=== PATIENT | female | born 1975 | race Caucasian/White ===

== ENCOUNTER 2018-03-14 11:08 | Outpatient (CLI) | payer OTHER, MEDICAID ==
[~2018-03-14] VITALS: Ht 124.5 cm; Wt 124.5 kg
--- NOTE | ~2018-03-14 | HEMODYNAMI ---
PATIENT:RONALDO GROVE MEDICAL RECORD: [id number] : 71 LOCATION:[facility] ADMISSION DATE: 03/14/18 Generatedon:03/14/201814:47 Patient name: RONALDO GROVE Patient #: [id number] SSN: : 1975 Date of study: 03/14/2018 Page: Of Hemodynamic Procedure Report Patient Data Patient Demographics Procedure consent was obtained First Name: RONALDO Gender: Female Last Name: PERFECTO : 1975 Middle Initial: SAIRA Age: 43 year(s) Patient #: [id number] Race: Unknown Additional ID: [id number] Contact details [address]: [address] [place] [address] State: [place] City: [place] Zip code: [address] Past Medical History Allergies Allergen Reaction Date Comments Reported Other allergy 03/14/2018 [facility] Admission Admission Data Admission Date: 03/14/2018 Admission Time: 11:08 Lab Results Lab Result Date: 03/14/2018 Lab Result Time: 0:00 Biochemistry Name Units Result Min Max BUN mg/dl 17 --(---*)-- 7 18 Creatinine mg/dl 0.9 --(-*--)-- 0.6 1.3 CBC Name Units Result Min Max Hemoglobin g/dl 10.8 *-(----)-- 13.5 17.5 Procedure Procedure Types Cath Procedure Diagnostic Procedure Sedation Charges Moderate Sedation up to 15 minutes Peripheral Cath Diagnostic Procedure Cath Peripheral Twijy-Xenurcb-Vge-Off Procedure Description Procedure Date Procedure Date: 03/14/2018 Procedure Start Time: 14:38 Procedure End Time: 14:46 Procedure Staff Name Function Davy Paez MD Performing Physician Thelma Rojas RT Monitor Ann Richter RT Scrub Migue Berger RN Nurse Procedure Data Cath Procedure Fluoroscopy Diagnostic fluoroscopy Total fluoroscopy Time: 0.7 time: 0.7 min min Diagnostic fluoroscopy Total fluoroscopy dose: 253 dose: 253 mGy mGy Contrast Material Contrast Material Type Amount (ml) Isovue 300 72 Entry Location Entry Primary Successful Side Size Upsize Upsize Entry Closure Succes sful Closure Location (Fr) 1 (Fr) 2 (Fr) Remarks Device Remarks Femoral Left 5 Fr Exoseal artery Estimated blood loss: 10 ml Diagnostic catheters Device Type Used For End Catheter Placement DIAGNOSTIC UF 5Fr Procedure catheter ([id number]) Procedure Complications No complications Procedure Medications Medication Administration Route Dosage Oxygen Heparin Flush Bag added to field 2 bags (1000units/500ml NS) 0.9% NaCl I.V. 100 ml/hr Fentanyl I.V. 50 mcg Versed I.V. 1 mg Fentanyl I.V. 50 mcg Versed I.V. 1 mg Fentanyl I.V. 50 mcg Fentanyl I.V. 50 mcg Hemodynamics Rest HGB: 10.8 (g/dl) Heart Rate: 62 (bpm) Snapshots Pre Cath Intra NCS Post Cath Vital Signs Time Heart Resp SPO2 etCO2 NIBP (mmHg) Rhythm Pain Sedation Rate (ipm) (%) (mmHg) Status Level (bpm) 14:20:15 60 17 97 0 135/72(105) NSR 0 (11) 10(A) , No pain 14:25:10 63 17 98 0 138/80(115) NSR 0 (11) 10(A) , No pain 14:30:07 59 17 96 27 123/68(98) NSR 0 (11) 9(A) , No pain 14:36:10 63 17 98 29.3 134/69(104) NSR 0 (11) 9(A) , No pain 14:41:15 72 16 98 36.8 143/77(108) NSR 0 (11) 9(A) , No pain 14:46:20 65 16 98 40.6 137/78(100) NSR 0 (11) 9(A) , No pain Medications Time Medication Route Dose Verified Delivered Reason Notes Effec tiveness by by 14:16:24 Oxygen Davy Migue Berger RN 14:16:33 Heparin Flush added 2 Davy Migue used for Bag to bags Philippe Berger communications intern (1000units/500ml field NS) 14:16:44 0.9% NaCl I.V. 100 Davy Migue Per ml/hr Philippe Berger RN physician 14:26:18 Fentanyl I.V. 50 Davy Migue for mcg Philippe Berger RN sedation 14:26:26 Versed I.V. 1 mg Davy Migue for Philippe Berger RN sedation 14:32:35 Fentanyl I.V. 50 Davy Migue for [facility] Philippe Berger RN sedation 14:32:39 Versed I.V. 1 mg Davy Migue for Philippe Berger RN sedation 14:35:03 Fentanyl I.V. 50 Davy Migue for [facility] Philippe Berger RN sedation 14:38:29 Fentanyl I.V. 50 Davy Migue for [facility] Philippe Berger RN sedation Procedure Log Time Note 13:50:03 Jennifer Guerrier RT(R) sent for patient. Start room use. 13:59:04 Time tracking: Regular hours (M-F 7:00 - 5:00) 13:59:07 Plan of Care:Hemodynamics will remain stable., Cardiac rhythm will remain stable., Comfort level will be maintained., Respiratory function will remain adequate., Patient/ family verbilizes understanding of procedure., Procedure tolerated without complication., Recovers from procedure without complications.. 14:08:05 H&P Date Dictated: 03/04/2018 Within 30 days and on chart., H&P Addendum completed by physician on day of procedure. (MUST COMPLETE FOR ALL OUTPATIENTS). 14:08:14 Patient allergic to Other allergyGEODON 14:08:39 Lab Result : BUN 17 mg/dl 14:08:40 Lab Result : Creatinine 0.9 mg/dl 14:08:40 Lab Result : Hemoglobin 10.8 g/dl 14:10:28 Patient received from Pre/Post Procedure Room to CCL 1 Alert and oriented. Tansferred to table in Supine position. 14:10:29 Warm blankets applied, and wilma hugger turned on for patient comfort. 14:10:29 Correct patient and procedure confirmed by team. 14:10:31 Signed procedure consent form obtained from patient. 14:10:32 ECG and BP/O2 sat monitors applied to patient. 14:16:24 Oxygen was administered by Migue Berger RN; ; 14:16:33 Heparin Flush Bag (1000units/500ml NS) 2 bags added to field was administered by Migue Berger RN; used for procedure; 14:16:44 0.9% NaCl 100 ml/hr I.V. was administered by Migue Berger RN; Per physician; 14:19:04 Vital chart was started 14:23:12 Baseline sample Acquired. 14:23:19 Rhythm: sinus rhythm 14:23:20 Full Disclosure recording started 14::21 Pre-procedure instructions explained to patient. 14:23:21 Pre-op teaching completed and patient verbalized understanding. 14:23:23 Family in patients room. 14:23:25 Patient NPO since Midnight. 14:23:26 Is the patient allergic to Iodine/contrast media? No. 14:23:27 Is patient on blood thinner?No 14:23:29 Patient diabetic? No. 14:24:00 Patient not . Patient has had hysterectomy. 14:24:05 Previous problem with sedation/anesthesia? No ? 14:24:07 Snore? Yes 14:24:08 Sleep apnea? No 14:24:09 Deviated septum? No 14:24:10 Opens mouth fully? Yes 14:24:11 Sticks out tongue? Yes 14:24:16 Airway obstruction? Yes ASTHMA 14:24:18 Dentures? No ? 14:24:21 Pre procedure: right dorsailis pedis pulse 2+ Normal; easily identifiable; not easily obliterated 14:24:23 Pre procedure: left dorsailis pedis pulse 2+ Normal; easily identifiable; not easily obliterated 14:24:26 Patient pain scale 0/10 ?. 14:24:37 IV patent on arrival in left forearm with 0.9% NaCl at O. 14:24:40 Lab results completed and on chart. 14:24:47 Bilateral groins area was prepped with chlora-prep and draped in sterile fashion 14:24:49 Alarms reviewed by R. N. 14:24:50 Sharps counted by scrub and verified by R.N. 14:25:09 Use device set CATH PACK 14:25:12 ACIST Syringe (54909) opened to sterile field. 14:25:12 ACIST Hand Control (00892) opened to sterile field. 14:25:12 ACIST Manifold (97755) opened to sterile field. 14:25:13 Medline Cath Pack ([id number]) opened to sterile field. 14:25:14 Bag Decanter () opened to sterile field. 14:25:15 DIAGNOSTIC WIRE .035 260cm J wire (682157) opened to sterile field. 14:25:23 SHEATH 5FR [place] ([id number]) opened to sterile field. 14::56 --------ALL STOP TIME OUT------ 14:25:57 Final Timeout: patient, procedure, and site verified with staff and physician. All members of the team are in agreement. 14:25:59 Bilateral groins site verified by team. 14:26:02 Physical assessment completed. ASA score P 2 - A patient with mild systemic disease as per Davy Paez MD. 14:26:04 Sedation plan: IV Moderate Sedation Medication:Versed, Fentanyl 14:26:18 Fentanyl 50 mcg I.V. was administered by Migue Berger RN; for sedation; 14:26:26 Versed 1 mg I.V. was administered by Migue Berger RN; for sedation; 14:27:39 Use device set Femoral Dx 14:27:41 ACIST Syringe (28006) opened to sterile field. 14:27:41 Bag Decanter (2002S) opened to sterile field. 14:27:45 Medline Cath Pack ([id number]) opened to sterile field. 14:27:47 DIAGNOSTIC WIRE .035 260cm J wire (261989) opened to sterile field. 14:27:51 ACIST Hand Control (60608) opened to sterile field. 14:27:52 ACIST Manifold (92181) opened to sterile field. 14:27:53 Tegaderm 4 x 4 (1626W) opened to sterile field. 14:27:54 PERCUTANEOUS ENTRY 19GA needle opened to sterile field. 14:27:58 SHEATH Prelude 5Fr 0.035 ([id number]-5U-93-035) opened to sterile field. 14:32:35 Fentanyl 50 mcg I.V. was administered by Migue Berger RN; for sedation; 14:32:39 Versed 1 mg I.V. was administered by Migue Berger RN; for sedation; 14:33:48 Zero performed for pressure channel P1 14:35:03 Fentanyl 50 mcg I.V. was administered by Migue Berger RN; for sedation; 14:36:05 Procedure started. 14:38:23 Local anesthetic to left femerol artery with Lidocaine 2% by Davy Paez MD.INITIAL ACCESS ONLY 14:38:29 Fentanyl 50 mcg I.V. was administered by Migue Berger RN; for sedation; 14:40:28 A 5 Fr sheath was inserted into the Left Femoral artery 14:40:41 A DIAGNOSTIC UF 5Fr catheter ([id number]) was advanced over the wire and used for Procedure. 14:41:11 Abdominal angiogram w/ runoff was performed. 14:41:22 Left leg runoff performed. 14:41:30 Right leg runoff performed. 14:42:17 EXOSEAL 5Fr (EX500) opened to sterile field. 14:42:59 Wire removed. 14:43:07 Sheath removed intact; hemostasis achieved with Exoseal to the Left Femoral artery. 14:43:21 Procedure ended.(Physican Out) 14:43:34 Fluoroscopy time 00.70 minutes. 14:43:40 Fluoroscopy dose: 253 mGy 14:43:40 Flurop Dose total: 253 14:43:45 Contrast amount:Isovue 300 72ml. 14:43:46 Sharps counted by scrub and verified by R.N. 14:43:48 Insertion/operative site no bleeding no hematoma. 14:44:43 Post-op/insertion site Left Femoral artery dressed using a 4 x 4 and Tegaderm. 14:44:55 Post-procedure physical assessment completed. ASA score P 2 - A patient with mild systemic disease as per Davy Paez MD. 14:44:59 Post procedure rhythm: unchanged. 14:45:06 Estimated blood loss: 10 ml 14:45:09 Post procedure instruction explained to patient.Patient verbalizes understanding. 14:45:26 Procedure type changed to Cath procedure, Diagnostic procedure, Sedation Charges, Moderate Sedation up to 15 minutes, Peripheral Cath Diagnostic Procedure, Cath Peripheral, Wyrhd-Awkspft-Gbm-Off 14:45:27 Procedure and supply charges have been captured, reviewed, submitted and are correct. 14:46:14 Procedure Complication : No complications 14:46:17 Vital chart was stopped 14:46:18 See physician's report for complete and final results. 14:46:20 Report given to Pre/Post Procedure Room. 14:46:23 Patient transfered to Pre/Post Procedure Room with Stretcher. 14:46:25 Procedure ended. 14:46:25 Full Disclosure recording stopped 14:46:28 End room use (Document Last) Device Usage Item Name Manufacture Quantity Catalog Number Hospital Part Current M inimal Lot# / Charge Number Stock Stock Serial# Code ACIST Syringe Acist 2 28320 734437 689332 242344 2 0 (52536) Medical [employer] Inc ACIST Hand Acist 2 48170 141951 288877 950241 5 Control (52884) [employer] Inc ACIST Manifold Acist 2 81514 076003 171083 117606 5 (87151) Medical Systems Inc Medline Cath Cardinal 2 [id number] 364079 40489 082589 5 Pack Health ([id number]) Bag Decanter Microtek 2 2002S 228701 06847 797334 5 (2001S) Medical Inc. DIAGNOSTIC WIRE St Enio 2 642069 845903 750074 039223 3 0 .035 260cm J wire (196977) SHEATH 5FR Terumo 1 UIG600 289016 442312 056593 4 0 [place] (JFI464) Tegaderm 4 x 4 3M 1 1626W 353351 747350 186302 5 (1626W) PERCUTANEOUS Cook Medical 1 [id number] 203035 583663 5 ENTRY 19GA needle SHEATH Prelude Merit 1 [id number] 113495 573829 385882 5 5Fr 0.035 Medical ([id number]-6C-[id number]) DIAGNOSTIC UF Cardinal 1 [id number] 082223 257373 844111 1 0 5Fr catheter Health ([id number]) EXOSEAL 5Fr Cardinal 1 EX500 967175 816254 478637 1 0 (EX500) Health Signature Audit [place] Stage Time Signature Unsigned Intra-Procedure 03/14/2018 Thelma Rojas 2:47:24 PM RT(R) Signatures Monitor : Thelma Rojas Signature : RT Date : Time : [address] [address]
[2018-03-14] MEDS ORDERED: OXYBUTYNIN CHLOR5 MG PO (12:12)
[2018-03-14] MEDS ORDERED: PROAIR HFA8.5 GM INH (12:12)
[2018-03-14] MEDS ORDERED: ZANAFLEX4 MG PO (12:13)
[2018-03-14] MEDS ORDERED: LYRICA200 MG PO (12:13)
[2018-03-14] MEDS ORDERED: HYDROCODON-ACE1 EAC7 PO (12:14)
[2018-03-14] MEDS ORDERED: CYMBALTA60 MG PO (12:15)
[2018-03-14] MEDS ORDERED: MINIPRESS2 MG PO (12:15)
[2018-03-14 12:22] VITALS: BP 116/66; Ht 124.5 cm; Wt 124.5 kg
[2018-03-14 12:38] LABS: BASOPHILS 0.3 % (0-2); EOSINOPHILS 2.1 % (0-7); HEMATOCRIT 34.2 % (36.0-48.0); HEMOGLOBIN 10.8 g/dL (12-16); IMMATURE GRANULOCYTES 0.4 % (0-5); LYMPHOCYTES 25.2 % (15-50); MCH 28.1 pg (26.0-34.0); MCHC 31.6 g/dL (31.0-37.0); MCV 88.8 fL (80.0-100.0); MEAN PLATELET VOLUME 10.4 fL (7.4-10.4); MONOCYTES 9.7 % (2-11); NEUTROPHILS 62.3 % (40-80); PLATELET COUNT 138 10x3/uL (130-400); RBC 3.85 10x6/uL (4.00-5.40); RDW 14.4 % (11.5-14.5); WBC 6.7 10x3/uL (4.8-10.8)
[2018-03-14 12:53] LABS: ANION GAP 10.2 mmol/L (8-16); CALCIUM 8.7 mg/dL (8.5-10.1); CARBON DIOXIDE 28.1 mmol/L (21.0-32.0); CREATININE - SERUM 0.9 mg/dL (0.6-1.3); POTASSIUM - SERUM 4.3 mmol/L (3.5-5.1)
== END 2018-03-14 17:05 | disposition home or self-care (01) ==
LOC: D.CATH 11:08
PROVIDERS: Internal Medicine Cardiovascular Disease
DX: M79.605 Pain in left leg (principal); M79.604 Pain in right leg; Z01.812 Encounter for preprocedural laboratory examination

== ENCOUNTER → 2018-06-07 12:37 | Outpatient (CLI) | payer OTHER, MEDICAID ==
[~2018-06-07] VITALS: Ht 124.5 cm; Wt 124.3 kg
[~2018-06-07 12:37] MED LIST: CYMBALTA60 MG PO; HYDROCODON-ACE1 EAC7 PO; LYRICA200 MG PO; MINIPRESS2 MG PO; OXYBUTYNIN CHLOR5 MG PO; PROAIR HFA8.5 GM INH; ZANAFLEX4 MG PO
[2018-06-07 14:41] VITALS: Ht 124.5 cm; Wt 124.3 kg
== END | disposition home or self-care (01) ==
LOC: D.FANS 12:37
DX: E11.9 Type 2 diabetes mellitus without complications (principal)

== ENCOUNTER 2018-11-04 13:32 | Inpatient (IN) | payer OTHER, MEDICAID ==
[~2018-11-04] VITALS: Ht 154.9 cm; Wt 125.6 kg
--- NOTE | 2018-11-04 14:00 | NUR ---
RECEIVED TO ROOM [address] DE LOS SANTOS'S OFFICE. A/O X3. NO C/O AT THIS TIME. SKIN IS INTACT WITHOUT REDNESS EXCEPT WOUND TO RIGHT LOWER LEG WHICH SHE SAYS IS DIABETIC DERMITITIS. APPROXIMATLY 1X1 SUPERFICIAL WOUND. CULTURE COLLECTED AND SENT TO LAB. DENIES NEEDS.
[2018-11-04] MEDS ORDERED: BACTRIM 400-801 TAB PO (14:03)
[2018-11-04] MEDS ORDERED: SINGULAIR10 MG PO (14:08)
[2018-11-04] MEDS ORDERED: OMEPRAZOLE20 M1 PO (14:10)
[2018-11-04] MEDS ORDERED: RANITIDINE HCL150 M1 PO (14:10)
[2018-11-04 14:12] VITALS: BP 130/74; BMI 52.4
[2018-11-04 15:01] LABS: BASOPHILS 0.1 % (0-2); EOSINOPHILS 1.2 % (0-7); HEMATOCRIT 36.7 % (36.0-48.0); HEMOGLOBIN 11.8 g/dL (12-16); IMMATURE GRANULOCYTES 0.7 % (0-5); LYMPHOCYTES 22.7 % (15-50); MCHC 32.2 g/dL (31.0-37.0); MONOCYTES 7.7 % (2-11); NEUTROPHILS 67.6 % (40-80); PLATELET COUNT 151 10x3/uL (130-400); RBC 4.37 10x6/uL (4.00-5.40); RDW 15.4 % (11.5-14.5); WBC 7.7 10x3/uL (4.8-10.8)
[2018-11-04 15:17] LABS: ALBUMIN 3.3 g/dL (3.4-5.0); BILIRUBIN - TOTAL 0.23 mg/dL (0.2-1.3); CALCIUM 8.6 mg/dL (8.5-10.1); CARBON DIOXIDE 26.2 mmol/L (21.0-32.0); CREATININE - SERUM 1.1 mg/dL (0.6-1.3); POTASSIUM - SERUM 3.2 mmol/L (3.5-5.1); PROTEIN - SERUM 7.3 g/dL (6.4-8.2)
--- NOTE | 2018-11-04 15:30 | NUR ---
20 G IV SITED TO L FOREARM, PATENT. DRSG APPLIED, C/D/I. IV SL AT THIS TIME. 2 ATTEMPTS WERE MADE. PT DENIES FURTHER NEEDS AT THIS TIME. BED LOWERED AND LOCKED. CL IN REACH. WILL CPOC.
--- NOTE | 2018-11-04 16:18 | NUR ---
COMPLETE LINEN CHANGE DONE. PT UP TO THE BATHROOM. NEW ARM BAND APPLIED. SCDS APPLIED, WORKING PROPERLY. NO FURTHER CONCERNS AT THIS TIME. CPOC.
[2018-11-04 16:43] LABS: APPEARANCE CLEAR (CLEAR); BILIRUBIN NEGATIVE (NEGATIVE); COLOR YELLOW (YELLOW); GLUCOSE NEGATIVE (NEGATIVE); KETONE NEGATIVE (NEGATIVE); NITRITE NEGATIVE (NEGATIVE); PROTEIN NEGATIVE (NEGATIVE); UROBILINOGEN NORMAL (NORMAL)
--- NOTE | 2018-11-04 17:00 | NUR ---
FINGER STICK BLOOD SUGAR 89. NO COVERAGE REQUIRED. SUPPER SERVED IN ROOM.
--- NOTE | 2018-11-04 18:26 | NUR ---
ATE ALL OF SUPPER. NO CHANGES NOTED. DENIES NEEDS. NO CHANGES NOTED.
--- NOTE | 2018-11-04 19:27 | NUR ---
RETRIEVED AND APPLIED TELEMETRY..BED LOW SR X2 AND CALL LIGHT IS IN REACH CONTACT ISOLATION IS BEING INFORCED PT IS ALERT AND ORIENTED AT THIS TIME. SCD IS OFF CAUSEING PAIN TO LEG LCTA SKIN WARM AND DRY AREA OF RT LEG NOTED WHERE DX OF CELLULITIS IS AREA IS REDDENED
[2018-11-04 19:34] VITALS: BP 122/45
--- NOTE | 2018-11-04 22:24 | NUR ---
NOTE PT WEARING BIPAP FROM HOME NO NOTED DISTRESS BED IS LOW AND CALL LIGHT IN REACH LCTA RESP EVEN AND UNLABORED
[2018-11-04 23:35] VITALS: BP 99/54
--- NOTE | 2018-11-04 23:48 | NUR ---
THE PATIENT REMAINS ON CONTACT PRECAUTIONS. PATIENT APPEARS TO BE SLEEPING. BED IN LOW POSITION WITH SIDERAILS X2 AND CALL LIGHT WITHIN REACH.
[2018-11-05 04:00] VITALS: BP 113/49
[2018-11-05 06:05] LABS: BASOPHILS 0.1 % (0-2); EOSINOPHILS 1.9 % (0-7); HEMATOCRIT 34.9 % (36.0-48.0); HEMOGLOBIN 11.4 g/dL (12-16); IMMATURE GRANULOCYTES 0.6 % (0-5); LYMPHOCYTES 24.3 % (15-50); MCH 27.6 pg (26.0-34.0); MCHC 32.7 g/dL (31.0-37.0); MCV 84.5 fL (80.0-100.0); MEAN PLATELET VOLUME 10.1 fL (7.4-10.4); MONOCYTES 8.8 % (2-11); NEUTROPHILS 64.3 % (40-80); PLATELET COUNT 148 10x3/uL (130-400); RBC 4.13 10x6/uL (4.00-5.40); RDW 15.5 % (11.5-14.5); WBC 7.3 10x3/uL (4.8-10.8)
[2018-11-05 06:41] LABS: ALBUMIN 2.9 g/dL (3.4-5.0); ANION GAP 12.8 mmol/L (8-16); BILIRUBIN - TOTAL 0.26 mg/dL (0.2-1.3); CARBON DIOXIDE 27.6 mmol/L (21.0-32.0); CREATININE - SERUM 1.1 mg/dL (0.6-1.3); POTASSIUM - SERUM 3.4 mmol/L (3.5-5.1); PROTEIN - SERUM 6.6 g/dL (6.4-8.2)
[2018-11-05 08:39] VITALS: BP 110/49
[2018-11-05 12:00] VITALS: BP 107/44
--- NOTE | 2018-11-05 12:41 | NUR ---
ALERT AND ORIENTED SITTING UP IN CHAIR. LORTAB GIVEN FOR PAIN AND EFECTIVE. DRESSIGN INTACT TO BLE WITH EDEMA NOTED. ENCOURAGED TO USE CALL LIGHT FOR ASSIST. IVF INFUSING AT PRESCRIBED RATED.
[2018-11-05 14:13] VITALS: Ht 154.9 cm; Wt 125.6 kg
[2018-11-05 16:00] VITALS: BP 105/42
[2018-11-05 20:00] VITALS: BP 117/60
--- NOTE | 2018-11-05 21:34 | NUR ---
PT C/O PAIN 04/05. GAVE NORCO-5 AND ZANAFLEX. GAVE SCHEDULED MEDS. FSBS 194 - PT REFUSED INSULIN. RLE DRESSING C/D/I. COMPLETE ASSESSMENT PER FLOW-SHEET. CONTACT ISOLATION PRECAUTIONS OBSERVED. WILL CONTINUE TO MONITOR.
[2018-11-06] VITALS: BP 108/56
[2018-11-06 04:00] VITALS: BP 98/42
[2018-11-06 05:53] LABS: BASOPHILS 0.2 % (0-2); EOSINOPHILS 2.3 % (0-7); HEMATOCRIT 33.8 % (36.0-48.0); HEMOGLOBIN 10.6 g/dL (12-16); IMMATURE GRANULOCYTES 1.1 % (0-5); LYMPHOCYTES 31.1 % (15-50); MCH 26.6 pg (26.0-34.0); MCHC 31.4 g/dL (31.0-37.0); MCV 84.9 fL (80.0-100.0); MEAN PLATELET VOLUME 9.9 fL (7.4-10.4); MONOCYTES 7.5 % (2-11); NEUTROPHILS 57.8 % (40-80); PLATELET COUNT 135 10x3/uL (130-400); RBC 3.98 10x6/uL (4.00-5.40); RDW 15.4 % (11.5-14.5); WBC 5.6 10x3/uL (4.8-10.8)
[2018-11-06 06:35] LABS: ALBUMIN 2.6 g/dL (3.4-5.0); ANION GAP 12.1 mmol/L (8-16); BILIRUBIN - TOTAL 0.17 mg/dL (0.2-1.3); CARBON DIOXIDE 25.9 mmol/L (21.0-32.0); CREATININE - SERUM 0.9 mg/dL (0.6-1.3); MAGNESIUM - SERUM 2.1 mg/dL (1.8-2.4); PROTEIN - SERUM 6.2 g/dL (6.4-8.2)
--- NOTE | 2018-11-06 07:15 | NUR ---
REC'D IN BED AWAKE AND ALERT. RESP EVEN AND UNLABORED WITH NO DISTRESS NOTED. CAN EXPRESS NEEDS AND WANTS. NO C/O NOTED OR VOICED. ASSESSEMENT COMPELETED. C/L IN REACH AT BEDSIDE. FAMILY ALSO AT BEDSIDE.
[2018-11-06 07:55] VITALS: BP 124/61
--- NOTE | 2018-11-06 08:39 | NUR ---
PATIENT RESTING WITH EYES CLOSED, CPAP IN PLACE, SR UP X2, CL IN REACH, DAUGHTER AT BEDSIDE
--- NOTE | 2018-11-06 11:08 | NUR ---
BS WAS 162 BUT PT REFUSED SLIDING SCALE INSULIN OF 2 UNITS. FAMILY AND C/L IN REACH AT BEDSIDE.
[2018-11-06 13:00] VITALS: BP 99/52
[2018-11-06 16:00] VITALS: BP 125/71
--- NOTE | 2018-11-06 17:23 | NUR ---
PT REFUSED SLIDING SCALE FOR BS RESULTS OF 188. FAMILY AND C/L IN REACH AT BEDSIDE.
[2018-11-06 20:00] VITALS: BP 119/73
--- NOTE | 2018-11-06 20:06 | NUR ---
PT C/O PAIN 05/06. GAVE NORCO-5 AND ZANAFLEX. GAVE SCHEDULED MEDS. FSBS 176 - PT REFUSED INSULIN. COMPLETE ASSESSMENT PER FLOW-SHEET. NO OTHER NEEDS. DAUGHTER AT BEDSIDE. WILL CONTINUE TO MONITOR.
[2018-11-07 04:00] VITALS: BP 103/51
[2018-11-07 04:07] LABS: BASOPHILS 0.3 % (0-2); EOSINOPHILS 2.3 % (0-7); HEMATOCRIT 34.1 % (36.0-48.0); HEMOGLOBIN 10.7 g/dL (12-16); IMMATURE GRANULOCYTES 1.2 % (0-5); LYMPHOCYTES 32.6 % (15-50); MCH 26.8 pg (26.0-34.0); MCHC 31.4 g/dL (31.0-37.0); MCV 85.5 fL (80.0-100.0); MEAN PLATELET VOLUME 10.2 fL (7.4-10.4); NEUTROPHILS 55.6 % (40-80); PLATELET COUNT 132 10x3/uL (130-400); RBC 3.99 10x6/uL (4.00-5.40); RDW 15.5 % (11.5-14.5); WBC 6.9 10x3/uL (4.8-10.8)
[2018-11-07 04:38] LABS: ALBUMIN 2.6 g/dL (3.4-5.0); ANION GAP 11.4 mmol/L (8-16); BILIRUBIN - TOTAL 0.19 mg/dL (0.2-1.3); CALCIUM 7.9 mg/dL (8.5-10.1); CARBON DIOXIDE 27.6 mmol/L (21.0-32.0); CREATININE - SERUM 0.9 mg/dL (0.6-1.3); PROTEIN - SERUM 6.1 g/dL (6.4-8.2)
--- NOTE | 2018-11-07 07:52 | NUR ---
RESTING QUIETLY WITH EYES CLOSED. ROUSES TO VERBAL STIMULATION. LUNGS ARE CLEAR BIALTERALLY, NO COUGH NOTED. SKIN IS INTACT WITHOUT REDNESS EXCEPT WOUND TO RIGHT LEG WHICH IS SCABBED OVER AND DRY AT THIS TIME. IV TO RIGHT HAND IS PATENT WITHOUT REDNESS AT INSERTION SITE. FAMILY AT [facility]. DENIES NEEDS.
[2018-11-07 08:04] VITALS: BP 121/70
--- NOTE | 2018-11-07 10:12 | NUR ---
ATE MOST OF BREAKFAST. STATED SHE WAS READY TO GO HOME.
--- NOTE | 2018-11-07 10:28 | MORECARE ---
CASE MANAGEMENT DISCHARGE SUMMARY PATIENT: RONALDO GROVE UNIT: [id number] ADM DATE: 11/04/18 AGE: 43 : 71 SEX: F ROOM/BED: D.2206 AUTHOR: HARSHAL KIM PHYSICIAN: REFERRING PHYSICIAN: TAE DE LOS SANTOS DO DATE OF SERVICE: 11/07/18 Discharge Plan Patient Name: RONALDO GROVE [facility] [facility] 1975 Planned Disposition: Home Anticipated Discharge Date: Discharge Date: Expected LOS: Initial Reviewer: [email or web address] Initial Review Date: 11/04/2018 Generated: 11/07/18 11:27 am Coverage Notice Reviewer: [id number] - Suzanne Sanderson Notice Issued Date-Time: 11/07/2018 10:20 Notice Type: IM Discharge Notice Notice Delivered To: Patient Relationship to Patient: Picker Machine Operator Name: Delivery Method: HAND - Hand Delivered Coreen Days: Prior Verbal Notification: Recipient Understood Notice: Yes Recipient Signature: Yes Med Rec Note Co-signed by Attending: Coverage Notice Comment: Patient Name: RONALDO GROVE Page [phone] at 1028 All edits/amendments must be made on the electronic document DICTATION DATE: 11/07/18 1027 LIVESTOCK RANCH HAND: INGRID 11/07/18 1027 RPT#: [id number] DC DATE: STATUS: ADM IN [facility] [address] [place] [address] END OF REPORT
--- NOTE | 2018-11-07 10:38 | MORECARE ---
CASE MANAGEMENT DISCHARGE SUMMARY PATIENT: RONALDO GROVE UNIT: [id number] ADM DATE: 11/04/18 AGE: 43 : 71 SEX: F ROOM/BED: D.2206 AUTHOR: JUDYDOC PHYSICIAN: REFERRING PHYSICIAN: TAE DE LOS SANTOS DO DATE OF SERVICE: 11/07/18 Discharge Plan Patient Name: RONALDO GROVE Facility: [facility]:[place] : 1975 Planned Disposition: Home Anticipated Discharge Date: Discharge Date: Expected LOS: Initial Reviewer: [email or web address] Initial Review Date: 11/04/2018 Generated: 11/07/18 11:37 am Comments DCP- Discharge Planning Updated by [email or web address]: Suzanne Sanderson on 11/07/18 9:[address] imm served and explained, copy placed in chart DCP- Discharge Planning Updated by [email or web address]: Suzanne Sanderson on 11/07/18 9:[address] Patient Name: RONALDO GROVE Admission Status: Urgent Accout number: [id number] Admission Date: 11-04-2018 : 1975 Admission Diagnosis: Attending: TAE DE LOS SANTOS Current LOS: 3 Anticipated DC Date: Planned Disposition: Home Primary Insurance: [employer] Discharge Planning Comments: CM met with patient to assess discharge planning needs. Patient stated that she lives independently at home with her daughter where she plans to return at discharge. She stated that she is independent with her care at home. Her daughter will be the one to drive her home at [place]. She has a CPAP machine ([place] home patient ). She denies any or community needs or resources. She states her home is safe to return. CM will continue to follow and assist with dc planning needs. Abrasive Water Jet Cutter Operator: Suzanne Sanderson DCPIA - Discharge Planning Initial Assessment Updated by [email or web address]: Suzanne Sanderson on 11/07/18 10:29 am * Is the patient Alert and Oriented? Yes * How many steps to enter\exit or inside your home? * PCP FILIBERTO * [facility] * Preadmission Environment Home with Family * ADLs Independent * Equipment CPAP * List name and contact numbers for known caregivers / representatives who currently or will assist patient after discharge: JACI NAJERA [phone] * Verbal permission to speak to the caregivers and representatives has been obtained from the patient. N/A * Community resources currently utilized None * Additional services required to return to the preadmission environment? No * Can the patient safely return to the preadmission environment? Yes * Has this patient been hospitalized within the prior 30 days at any hospital? No Coverage Notice Reviewer: [id number] Isaiah Sanderson Notice Issued Date-Time: 11/07/2018 10:20 Notice Type: IM Discharge Notice Notice Delivered To: Patient Relationship to Patient: Accident Investigator Name: Delivery Method: HAND - Hand Delivered Coreen Days: Prior Verbal Notification: Recipient Understood Notice: Yes Recipient Signature: Yes Med Rec Note Co-signed by Attending: Coverage Notice Comment: Patient Name: RONALDO GROVE Page [phone] at 1038 All edits/amendments must be made on the electronic document DICTATION DATE: 11/07/18 1037 DIABETES NURSE: INGRID 11/07/18 [facility] RPT#: [id number] DC DATE: STATUS: ADM IN [facility] [address] [place] [address] END OF REPORT
--- NOTE | 2018-11-07 11:00 | NUR ---
DISCHARGED TO HOME WITH FAMILY AMBULATORY. DISCHARGE INSTRUCTIONS GIVEN BOTH VERBALLY AND WRITTEN. ALL QUESTIONS ANSWERED. PATIENT AND FAMILY VERBALZIED UNDERSTANDING OF SAME. NO NEW PRESCRIPTIONS NEEDED. WAITING ON RIDE TO D/C HOME. IV TO RIGHT HAND D/C WITH CATHETER INTACT.
--- NOTE | 2018-11-07 11:51 | NUR ---
HER RIDE IS HERE. DISCHARGED TO HOME WITH FAMILY AMBULATORY. ALL BELONGINGS WITH PATIENT.
--- NOTE | 2018-11-11 14:33 | MORECARE ---
CASE MANAGEMENT DISCHARGE SUMMARY PATIENT: RONALDO GROVE UNIT: [id number] ADM DATE: 11/04/18 AGE: 43 : 71 SEX: F ROOM/BED: D.2206 AUTHOR: JUDYDOC PHYSICIAN: REFERRING PHYSICIAN: TAE DE LOS SANTOS DO DATE OF SERVICE: 11/11/18 Discharge Plan Patient Name: RONALDO GROVE Facility: [facility]:[place] : 1975 Planned Disposition: Home Anticipated Discharge Date: Discharge Date: 11/07/2018 Expected LOS: 0 Initial Reviewer: [email or web address] Initial Review Date: 11/04/2018 Generated: 11/11/18 3:33 pm Comments DCP- Discharge Planning Updated by [email or web address]: Suzanne Sanderson on 11/07/18 9:[address] imm served and explained, copy placed in chart DCP- Discharge Planning Updated by [email or web address]: Suzanne Sanderson on 11/07/18 9:[address] Patient Name: RONALDO GROVE Admission Status: Urgent Accout number: [id number] Admission Date: 11-04-2018 : 1975 Admission Diagnosis: Attending: TAE DE LOS SANTOS Current LOS: 3 Anticipated DC Date: Planned Disposition: Home [facility] Discharge Planning Comments: CM met with patient to assess discharge planning needs. Patient stated that she lives independently at home with her daughter where she plans to return at discharge. She stated that she is independent with her care at home. Her daughter will be the one to drive her home at [place]. She has a CPAP machine ([place] home patient ). She denies any or community needs or resources. She states her home is safe to return. CM will continue to follow and assist with dc planning needs. Repairer Pump: Suzanne Sanderson DCPIA - Discharge Planning Initial Assessment Updated by [email or web address]: Suzanne Sanderson on 11/07/18 10:29 am * Is the patient Alert and Oriented? Yes * How many steps to enter\exit or inside your home? * PCP FILIBERTO * [facility] * Preadmission Environment Home with Family * ADLs Independent * Equipment CPAP * List name and contact numbers for known caregivers / representatives who currently or will assist patient after discharge: JACI NAJERA [phone] * Verbal permission to speak to the caregivers and representatives has been obtained from the patient. N/A * Community resources currently utilized None * Additional services required to return to the preadmission environment? No * Can the patient safely return to the preadmission environment? Yes * Has this patient been hospitalized within the prior 30 days at any hospital? No Coverage Notice Reviewer: [email or web address] Isaiah Sanderson Notice Issued Date-Time: 11/07/2018 10:20 Notice Type: IM Discharge Notice Notice Delivered To: Patient Relationship to Patient: Aids Nurse Name: Delivery Method: HAND - Hand Delivered Coreen Days: Prior Verbal Notification: Recipient Understood Notice: Yes Recipient Signature: Yes Med Rec Note Co-signed by Attending: Coverage Notice Comment: Last DP export: 11/07/18 9:38 a Patient Name: RONALDO GROVE Page [phone] at 1433 All edits/amendments must be made on the electronic document DICTATION DATE: 11/11/18 143 SIGNAL CIRCUIT DESIGNER: INGRID 11/11/18 1433 RPT#: [id number] DC DATE:11/07/18 STATUS: DIS IN [facility] [address] [place] [address] END OF REPORT
== END 2018-11-07 11:52 | disposition home or self-care (01) | DRG 638 ==
LOC: D.MS 13:32
PROVIDERS: ADMIT Family Medicine
DX: E11.628 Type 2 diabetes mellitus with other skin complications (principal); L03.115 Cellulitis of right lower limb; B95.62 Methicillin resistant Staphylococcus aureus infection as the cause of diseases classified elsewhere; E11.65 Type 2 diabetes mellitus with hyperglycemia

== ENCOUNTER → 2021-01-24 07:35 | Outpatient (CLI) | payer OTHER, MEDICAID ==
[2018-11-05 14:13] VITALS: BMI 52.3
[~2021-01-24 07:35] MED LIST changes: +BACTRIM 400-801 TAB PO; +OMEPRAZOLE20 M1 PO; +RANITIDINE HCL150 M1 PO; +SINGULAIR10 MG PO
== END | disposition home or self-care (01) ==
LOC: D.RAD 07:35
PROVIDERS: ATTEND Family Medicine
DX: R13.10 Dysphagia, unspecified (principal)